=== PATIENT | female | born 1975 | race Caucasian/White ===

== ENCOUNTER 2017-10-02 19:57 | Emergency (ER) | payer OTHER ==
[~2017-10-02] VITALS: Ht 154.9 cm; Wt 93.9 kg
[2017-10-02] MEDS ORDERED: PENICILLIN G BENZATHINE 600000 UNIT/1 ML IM STA (20:46)
[2017-10-02 21:35] VITALS: BP 128/83
[2017-10-02] MEDS ORDERED: AMLODIPINE BESY10 MG PO (21:39)
[2017-10-02] MEDS ORDERED: HYDROCHLOROTHIA25 MG (21:39)
[2017-10-02] MEDS ORDERED: PROVENTIL HFA6.7 GM (21:39)
[2017-10-02] MEDS ORDERED: ATORVASTATIN CA20 MG PO (21:39)
[2017-10-02] MEDS ORDERED: METFORMIN HCL500 MG PO (21:39)
== END 2017-10-02 21:36 | disposition home or self-care (01) ==
LOC: FSED 19:57
DX: R50.9 Fever, unspecified (principal); J02.0 Streptococcal pharyngitis
CPT/HCPCS: 83518; 99282; J0561